=== PATIENT | female | born 1945 | race Caucasian/White ===

== ENCOUNTER → 2016-11-25 | Outpatient (CLI) | payer MEDICARE ==
--- NOTE | 2016-11-25 09:48 | US ---
EXAMINATION TYPE: US abdomen complete DATE OF EXAM: 11/25/2016 COMPARISON: NONE CLINICAL HISTORY: K21.9 Gastric Reflux, R11.0 Nausea. EXAM MEASUREMENTS: Liver Length: 15.1 cm Gallbladder Wall: 0.2 cm CBD: 0.6 cm Spleen: 11.1 cm Right Kidney: 11.5 x 5.1 x 4.9 cm Left Kidney: 10.5 x 5.7 x 5.5 cm Pancreas: visualized portions wnl Liver: Thin-walled cyst near dome measures 1.8 x 1.4 x 2.3 Gallbladder: No stones seen Evidence for sonographic Stewart's sign: No CBD: measures 0.6 cm Spleen: wnl Right Kidney: cyst lower pole measuring 2.0 x 1.9 x 2.3 cm Left Kidney: two separate echogenic foci that are shadowing, largest measures 1.2 cm upper pole Upper IVC: wnl Abd Aorta: wnl The in visualized liver is heterogeneous. Evaluation for focal masses is suboptimal due to the hetero geneity. The intrahepatic portion of the IVC and visualized abdominal aorta are within normal limits towards end of study. Common bile duct is unremarkable. The visualized portions of the pancreas are homogenous. The spleen is unremarkable. Kidneys show no evidence of hydronephrosis bilaterally. Co rtical thinning left kidney is present. No concerning renal lesions are seen bilaterally. IMPRESSION: No significant finding is seen to account for patient's symptoms of gastric esophageal r eflux and nausea. Heterogeneity of liver is likely on basis of fatty infiltration. Suspect nonobstruc ting left-sided renal calculi. Consider plain film and/or CT correlation.
== END | disposition home or self-care (01) ==
LOC: RADUSWWP 08:48
PROVIDERS: ATTEND Family Medicine
DX: K21.9 Gastro-esophageal reflux disease without esophagitis (principal); R11.0 Nausea; R93.422 Abnormal radiologic findings on diagnostic imaging of left kidney
CPT/HCPCS: 76700

== ENCOUNTER 2017-03-04 07:34 | Day surgery (SDC) | payer MEDICARE ==
[2017-03-02 14:56] VITALS: BMI 30.6
[~2017-03-04 07:34] MED LIST: LACTATED RINGERS 1,000 ML IV SCH; LIDOCAINE 1% 20 ML VIAL (10MG/ML) FOR IV START INTRADERMA PRN
[2017-03-04] MEDS ORDERED: LACTATED RINGERS 1,000 ML IV ONE (07:35)
[2017-03-04 07:53] LABS: Glucose,Whole Blood 125 mg/dL (75-99)
[2017-03-04] MEDS ORDERED: LIDOCAINE 1% INJ 10MG/ML (20 ML MDV) ONE (08:18)
[2017-03-04] MEDS ORDERED: PROPOFOL 10 MG/ML 20 ML VIAL IV ONE (08:18)
[2017-03-04] MEDS ORDERED: IV FLUID CONTINUATION 425 ML IV ONE (08:47)
--- NOTE | 2017-03-04 08:48 | P.PCN ---
Date of Procedure: 03/04/17 Preoperative Diagnosis: Postoperative Diagnosis: Procedure(s) Performed: Procedure: Total colonoscopy. Preoperative diagnosis: Screening for neoplasia and change in bowel habits. Postoperative diagnosis: Left-sided diverticulosis with no evidence of acute diverticulitis, strictures, polyps or cancer. Preparation: HalfLytely prep. Sedation: Was provided by anesthesia. Brief clinical history: The patient is a 71-year-old female who is referred for this evaluation because of history of polyps and the issues with alternating bowel habits. Her last colonoscopy was around 6 or 7 years ago. She has no abdominal pain, bleeding or anemia. Procedure: With the patient on her left lateral decubitus position and after informed consent and adequate sedation, the perianal area was inspected and it did not show any fissures or fistulas. There were no masses felt on digital rectal examination. The Olympus CFQ 160L video colonoscope was then inserted in the rectum in the usual fashion and advanced to the cecum. There were several diverticular orifices seen on the left side with no evidence of acute diverticulitis or strictures. No polyps or tumors were seen. The mucosa appeared healthy. I retroflexed the endoscope in the rectum before the endoscope was withdrawn. The patient tolerated the procedure well. Plan: The patient was reassured. Discussed dietary measures. Consideration can be given for repeat exam in 5 years depending on her overall health at that time. She will follow-up with you as planned. Implants: Indications for Procedure: Operative Findings: Description of Procedure:
[2017-03-04 09:02] VITALS: RESP 18
[2017-03-04 09:17] VITALS: BP 153/70; PULSE 52
== END 2017-03-04 09:30 | disposition home or self-care (01) ==
LOC: ORWHC2ENDO 07:34
DX: K57.30 Diverticulosis of large intestine without perforation or abscess without bleeding (principal); Z86.010 Personal history of colon polyps; K21.9 Gastro-esophageal reflux disease without esophagitis; I10 Essential (primary) hypertension; E78.5 Hyperlipidemia, unspecified; J45.909 Unspecified asthma, uncomplicated; E11.9 Type 2 diabetes mellitus without complications; Z79.84 Long term (current) use of oral hypoglycemic drugs; Z86.73 Personal history of transient ischemic attack (TIA), and cerebral infarction without residual deficits; Z79.82 Long term (current) use of aspirin; Z79.899 Other long term (current) drug therapy
CPT/HCPCS: 45378; J2001; J2704

== ENCOUNTER → 2018-06-13 | Outpatient (CLI) | payer MEDICARE ==
--- NOTE | 2018-06-13 15:35 | BD ---
EXAMINATION TYPE: Axial Bone Density DATE OF EXAM: 06/13/2018 COMPARISON: 12/25/2014 CLINICAL HISTORY: 72-year-old female postmenopausal screening without HRT Height: 62 IN Weight: 170 LBS RISK FACTORS HISTORY OF: Active: YES Diet low in dairy products/other sources of calcium: YES Postmenopausal woman: AGE 49 Take estrogen and/or progesterone medications: NOT NOW How long: TOOK ESTROGEN FOR 4 YEARS MEDICATIONS: Additional Medications: VIT D, OMEPRAZOLE, LOSARTAN, METFORMIN, CETIRIZINE, MONTELUKAST, ASPIRIN,PRAV ASTATIN, FERROUS SULFATE, VIT B12, MULTI VIT EXAM MEASUREMENTS: Bone mineral densitometry was performed using the [employer] System. Bone mineral density as measured about the Lumbar spine is: ----- L1-L4(G/cm2): 1.092 T Score Values are as follows: ----- L2: -1.4 ----- L3: -0.2 ----- L4: -0.8 ----- L1-L4: -0.7 Bone mineral density has: Decreased -2.0% since study of: 12/25/2014 Bone mineral density about the R hip (g/cm2): 0.877 Bone mineral density about the L hip (g/cm2): 0.958 T Score values are as follows: -----R Neck: -1.2 -----L Neck: -0.6 -----R Total: -1.1 -----L Total: -0.4 Bone mineral density has: Increased 4.6% since study of: 12/25/2014 IMPRESSION: Osteopenia (T Score between -2.5 and -1). There is slightly increased risk of fracture and the patient may be considered for treatment. Re-Screen 2-5 years. NOTE: T-SCORE=SD OF THE YOUNG ADULT MEAN.
--- NOTE | 2018-06-14 11:16 | MM ---
Reason for exam: screening (asymptomatic). Last mammogram was performed 1 year ago. History: Patient is postmenopausal. Family history of breast cancer in paternal aunt at age 70. Benign stereotactic core biopsy of the left breast, July 26, 1998. Took estrogen for 4 years. Physical Findings: A clinical breast exam by your physician is recommended on an annual basis and results should be correlated with mammographic findings. MG 3D Screening Mammo W/Cad Bilateral CC and MLO view(s) were taken. Prior study comparison: June 10, 2017, bilateral MG 3d screening mammo w/cad. March 19, 2016, bilateral MG 3d screening mammo w/cad. The breast tissue is heterogeneously dense. This may lower the sensitivity of mammography. No suspicious abnormality. Left biopsy marker noted. No significant changes when compared with prior studies. ASSESSMENT: Benign, BI-RAD 2 RECOMMENDATION: Routine screening mammogram of both breasts in 1 year.
== END | disposition home or self-care (01) ==
LOC: RADMAMWWP 08:44
PROVIDERS: ATTEND Obstetrics & Gynecology
DX: Z12.31 Encounter for screening mammogram for malignant neoplasm of breast (principal); Z13.820 Encounter for screening for osteoporosis; M85.80 Other specified disorders of bone density and structure, unspecified site
CPT/HCPCS: 77063; 77067; 77080

== ENCOUNTER → 2019-06-17 | Outpatient (CLI) | payer MEDICARE ==
--- NOTE | 2019-06-23 09:53 | MM ---
Reason for exam: screening (asymptomatic). Last mammogram was performed 1 year ago. History: Patient is postmenopausal. Family history of breast cancer in paternal aunt at age 70. Benign stereotactic core biopsy of the left breast, July 26, 1998. Took estrogen for 4 years. Physical Findings: A clinical breast exam by your physician is recommended on an annual basis and results should be correlated with mammographic findings. MG 3D Screening Mammo W/Cad Bilateral CC and MLO view(s) were taken. XCCL view(s) were taken of the left breast. Prior study comparison: June 13, 2018, bilateral MG 3d screening mammo w/cad. June 10, 2017, bilateral MG 3d screening mammo w/cad. There are scattered fibroglandular densities. Previous mammotome biopsy in the left breast. No significant changes when compared with prior studies. ASSESSMENT: Negative, BI-RAD 1 RECOMMENDATION: Routine screening mammogram of both breasts in 1 year.
== END | disposition home or self-care (01) ==
LOC: RADMAMWWP 08:15
PROVIDERS: ATTEND Obstetrics & Gynecology
DX: Z12.31 Encounter for screening mammogram for malignant neoplasm of breast (principal)
CPT/HCPCS: 77063; 77067

== ENCOUNTER 2020-05-28 10:13 | Emergency (ER) | payer MEDICARE ==
[2020-05-28 10:41] VITALS: RESP 18
--- NOTE | 2020-05-28 10:47 | ED ---
General Adult HPI - General Chief complaint: Dizziness Stated complaint: Near Syncope Time Seen by Provider: 05/28/20 10:46 Source: patient Mode of arrival: wheelchair Limitations: no limitations - History of Present Illness Initial comments: Pt is a 74 yo female, with history of diabetes, hypertension, presenting to the emergency Department with complaints of near syncope today after walking to the bathroom this morning. Pt had been awake for about an hour and had toast for breakfast. She states that she felt like she was going to pass out when she was walking to the restroom. She denies fever, chest pain, dyspnea. He denies pain anywhere, no abdominal pain, no nausea or vomiting, no urinary complaints. Patient states she normally has a slight cough but feels like it is a little bit more increased than usual. She has been feeling generally fatigued over the last 3 days, lower appetite, some intermittent lightheadedness. She denies any sick contacts that she is aware of. She denies any falls or trauma. She has no further complaints at this time. Upon arrival to the ER, she is afebrile, slightly hypertensive at 188/76, rest of vitals are normal. - Related Data Home Medications Medication Instructions Recorded Confirmed Aspirin 325 mg PO HS 03/02/17 05/28/20 Cetirizine HCl 10 mg PO DAILY 03/02/17 05/28/20 Cholecalciferol [Vitamin D3] 5,000 unit PO DAILY 03/02/17 05/28/20 Fish Oil/Dha/Epa [Fish Oil 1,200 1 cap PO DAILY 03/02/17 05/28/20 mg Fish Oil] Montelukast [Singulair] 10 mg PO HS 03/02/17 05/28/20 Multivitamins, Thera [Multivitamin 1 tab PO DAILY 03/02/17 05/28/20 (formulary)] Omeprazole [PriLOSEC] 20 mg PO AC-BID 03/02/17 05/28/20 Pravastatin Sodium [Pravachol] 40 mg PO HS 03/02/17 05/28/20 metFORMIN HCL [Glucophage] 1,000 mg PO QAM 03/02/17 05/28/20 metFORMIN HCL [Glucophage] 500 mg PO HS 03/02/17 05/28/20 Cyanocobalamin [Vitamin B-12] 500 mcg PO DAILY 05/28/20 05/28/20 Ferrous Sulfate [Feosol] 325 mg PO DAILY 05/28/20 05/28/20 Losartan Potassium 100 mg PO DAILY 05/28/20 05/28/20 hydroCHLOROthiazide [Hydrodiuril] 25 mg PO DAILY 05/28/20 05/28/20 Allergies Allergy/AdvReac Type Severity Reaction Status Date / Time No Known Allergies Allergy Verified 05/28/20 12:14 Review of Systems ROS Statement: Those systems with pertinent positive or pertinent negative responses have been documented in the HPI. ROS Other: All systems not noted in ROS Statement are negative. Past Medical History Past Medical History: Diabetes Mellitus, GERD/Reflux, Hyperlipidemia, Hypertension Additional Past Medical History / Comment(s): TIA left eye, varicose veins, History of Any Multi-Drug Resistant Organisms: None Reported Past Surgical History: Appendectomy, Hysterectomy, Orthopedic Surgery Additional Past Surgical History / Comment(s): arthroscopy left knee, rt shoulder rotator cuff, rt great toe surgery, neelima cataracts Past Anesthesia/Blood Transfusion Reactions: No Reported Reaction Past Psychological History: No Psychological Hx Reported Smoking Status: Never smoker Past Alcohol Use History: None Reported Past Drug Use History: None Reported - Past Family History Mother Family Medical History: Cancer Brother(s) Family Medical History: Pulmonary Embolus General Exam - General Exam Comments Initial Comments: GENERAL: Patient is well-developed and well-nourished. Patient is nontoxic and in no acute distress. HEAD: Atraumatic, normocephalic. EYES: Pupils equal round and reactive to light, extraocular movements intact, sclera anicteric, conjunctiva are normal. Eyelids were unremarkable. ENT: TMs normal, nares patent, oropharynx clear without exudates. Moist mucous membranes. NECK: Normal range of motion, supple without lymphadenopathy or JVD. LUNGS: Unlabored respirations. Breath sounds clear to auscultation bilaterally and equal. No wheezes rales or rhonchi. HEART: Regular rate and rhythm without murmurs, rubs or gallops. ABDOMEN: Soft, nontender, normoactive bowel sounds. No guarding, no rebound. No masses appreciated. : Deferred MUSCULOSKELETAL: Normal extremities with adequate strength and normal range of motion, no pitting or edema. No clubbing or cyanosis. NEUROLOGICAL: Patient is alert and oriented x 3. Motor and sensory are also intact. Cranial nerves II through XII grossly intact. Symmetrical smile. Normal speech, normal gait. PSYCH: Normal mood, normal affect. SKIN: Warm, Dry, normal turgor, no rashes or lesions noted. Limitations: no limitations Course Vital Signs 05/28/20 05/28/20 10:39 12:52 Temperature 98.9 F 97.7 F Pulse Rate 71 68 Respiratory 18 18 Rate Blood Pressure 188/76 148/69 O2 Sat by Pulse 97 98 Oximetry EKG Findings - EKG Comments: EKG Findings:: Normal sinus rhythm, normal ECG, no signs of acute ischemia. Ve ntricular rate 65, NH interval 172, QTC 422. Medical Decision Making - Medical Decision Making Patient is a 74-year-old female here for feeling near-syncope and this morning when she is walking to the restroom. She's had fatigue and lower appetite for the last 3 days. No fevers. He is afebrile upon arrival, slightly hypertensive. Her EKG shows no acute process. Labs show a normal white count, normal hemoglobin, lactic acid is 2.4, most likely from dehydration. There is no signs of an acute infection. Troponin is negative, urine shows no evidence of infection. Covid tested comeback positive. Chest x-ray shows some mild left basilar infiltrate, no other acute process. Patient was given a liter of fluids and does report improvement in her symptoms. I discussed these findings with the patient. She needs to continue to self quarantine at home, she does live by herself. Increase fluid intake and to follow up with her PCP. Patient is in agreement with this plan of care. She is stable for discharge. Return parameters were discussed with the patient she verbalized understanding. Case discussed Dr. Serrano. - Lab Data Result diagrams: 05/28/20 11:15 05/28/20 11:15 Lab Results 05/28/20 05/28/20 05/28/20 Range/Units 11:15 11:15 11:15 WBC 8.1 (3.8-10.6) k/uL RBC 3.95 (3.80-5.40) m/uL Hgb 12.0 (11.4-16.0) gm/dL Hct 35.6 (34.0-46.0) % MCV 90.2 (80.0-100.0) fL MCH 30.5 (25.0-35.0) pg MCHC 33.8 (31.0-37.0) g/dL RDW 12.7 (11.5-15.5) % Plt Count 307 (150-450) k/uL MPV 7.2 Neutrophils % 81 % Lymphocytes % 13 % Monocytes % 4 % Eosinophils % 1 % Basophils % 0 % Neutrophils # 6.6 (1.3-7.7) k/uL Lymphocytes # 1.1 (1.0-4.8) k/uL Monocytes # 0.3 (0-1.0) k/uL Eosinophils # 0.1 (0-0.7) k/uL Basophils # 0.0 (0-0.2) k/uL PT 9.3 (9.0-12.0) sec INR 0.9 (<1.2) APTT 21.4 L (22.0-30.0) sec Sodium 137 (137-145) mmol/L Potassium 4.1 (3.5-5.1) mmol/L Chloride 101 (98-107) mmol/L Carbon Dioxide 27 (22-30) mmol/L Anion Gap 9 mmol/L BUN 20 H (7-17) mg/dL Creatinine 0.79 (0.52-1.04) mg/dL Est GFR (CKD-EPI)AfAm 85 (>60 ml/min/1.73 sqM) Est GFR (CKD-EPI)NonAf 74 (>60 ml/min/1.73 sqM) Glucose 163 H (74-99) mg/dL Plasma Lactic Acid Sam (0.7-2.0) mmol/L Calcium 9.4 (8.4-10.2) mg/dL Total Bilirubin 1.0 (0.2-1.3) mg/dL AST 35 (14-36) U/L ALT 27 (4-34) U/L Alkaline Phosphatase 87 (38-126) U/L Troponin I (0.000-0.034) ng/mL Total Protein 6.9 (6.3-8.2) g/dL Albumin 4.2 (3.5-5.0) g/dL Urine Color Urine Appearance (Clear) Urine pH (5.0-8.0) Ur Specific [place] (1.001-1.035) Urine Protein (Negative) Urine Glucose (UA) (Negative) Urine Ketones (Negative) Urine Blood (Negative) Urine Nitrite (Negative) Urine Bilirubin (Negative) Urine Urobilinogen (<2.0) mg/dL Ur Leukocyte Esterase (Negative) Urine RBC (0-5) /hpf Urine WBC (0-5) /hpf Ur Squamous Epith Cells (0-4) /hpf Urine Bacteria (None) /hpf Hyaline Casts (0-2) /lpf Urine Mucus (None) /hpf Coronavirus (PCR) (Not Detectd) 05/28/20 05/28/20 05/28/20 Range/Units 11:15 11:15 11:23 WBC (3.8-10.6) k/uL RBC (3.80-5.40) m/uL Hgb (11.4-16.0) gm/dL Hct (34.0-46.0) % MCV (80.0-100.0) fL MCH (25.0-35.0) pg MCHC (31.0-37.0) g/dL RDW (11.5-15.5) % Plt Count (150-450) k/uL MPV Neutrophils % % Lymphocytes % % Monocytes % % Eosinophils % % Basophils % % Neutrophils # (1.3-7.7) k/uL Lymphocytes # (1.0-4.8) k/uL Monocytes # (0-1.0) k/uL Eosinophils # (0-0.7) k/uL Basophils # (0-0.2) k/uL PT (9.0-12.0) sec INR (<1.2) APTT (22.0-30.0) sec Sodium (137-145) mmol/L Potassium (3.5-5.1) mmol/L Chloride (98-107) mmol/L Carbon Dioxide (22-30) mmol/L Anion Gap mmol/L BUN (7-17) mg/dL Creatinine (0.52-1.04) mg/dL Est GFR (CKD-EPI)AfAm (>60 ml/min/1.73 sqM) Est GFR (CKD-EPI)NonAf (>60 ml/min/1.73 sqM) Glucose (74-99) mg/dL Plasma Lactic Acid Sam 2.4 H* (0.7-2.0) mmol/L Calcium (8.4-10.2) mg/dL Total Bilirubin (0.2-1.3) mg/dL AST (14-36) U/L ALT (4-34) U/L Alkaline Phosphatase (38-126) U/L Troponin I <0.012 (0.000-0.034) ng/mL Total Protein (6.3-8.2) g/dL Albumin (3.5-5.0) g/dL Urine Color Urine Appearance (Clear) Urine pH (5.0-8.0) Ur Specific [place] (1.001-1.035) Urine Protein (Negative) Urine Glucose (UA) (Negative) Urine Ketones (Negative) Urine Blood (Negative) Urine Nitrite (Negative) Urine Bilirubin (Negative) Urine Urobilinogen (<2.0) mg/dL Ur Leukocyte Esterase (Negative) Urine RBC (0-5) /hpf Urine WBC (0-5) /hpf Ur Squamous Epith Cells (0-4) /hpf Urine Bacteria (None) /hpf Hyaline Casts (0-2) /lpf Urine Mucus (None) /hpf Coronavirus (PCR) Detected A (Not Detectd) 05/28/20 Range/Units 12:50 WBC (3.8-10.6) k/uL RBC (3.80-5.40) m/uL Hgb (11.4-16.0) gm/dL Hct (34.0-46.0) % MCV (80.0-100.0) fL MCH (25.0-35.0) pg MCHC (31.0-37.0) g/dL RDW (11.5-15.5) % Plt Count (150-450) k/uL MPV Neutrophils % % Lymphocytes % % Monocytes % % Eosinophils % % Basophils % % Neutrophils # (1.3-7.7) k/uL Lymphocytes # (1.0-4.8) k/uL Monocytes # (0-1.0) k/uL Eosinophils # (0-0.7) k/uL Basophils # (0-0.2) k/uL PT (9.0-12.0) sec INR (<1.2) APTT (22.0-30.0) sec Sodium (137-145) mmol/L Potassium (3.5-5.1) mmol/L Chloride (98-107) mmol/L Carbon Dioxide (22-30) mmol/L Anion Gap mmol/L BUN (7-17) mg/dL Creatinine (0.52-1.04) mg/dL Est GFR (CKD-EPI)AfAm (>60 ml/min/1.73 sqM) Est GFR (CKD-EPI)NonAf (>60 ml/min/1.73 sqM) Glucose (74-99) mg/dL Plasma Lactic Acid Sam (0.7-2.0) mmol/L Calcium (8.4-10.2) mg/dL Total Bilirubin (0.2-1.3) mg/dL AST (14-36) U/L ALT (4-34) U/L Alkaline Phosphatase (38-126) U/L Troponin I (0.000-0.034) ng/mL Total Protein (6.3-8.2) g/dL Albumin (3.5-5.0) g/dL Urine Color Yellow Urine Appearance Cloudy H (Clear) Urine pH 6.5 (5.0-8.0) Ur Specific [place] 1.015 (1.001-1.035) Urine Protein Trace H (Negative) Urine Glucose (UA) Negative (Negative) Urine Ketones Negative (Negative) Urine Blood Negative (Negative) Urine Nitrite Negative (Negative) Urine Bilirubin Negative (Negative) Urine Urobilinogen <2.0 (<2.0) mg/dL Ur Leukocyte Esterase Negative (Negative) Urine RBC 2 (0-5) /hpf Urine WBC 1 (0-5) /hpf Ur Squamous Epith Cells 8 H (0-4) /hpf Urine Bacteria Rare H (None) /hpf Hyaline Casts 1 (0-2) /lpf Urine Mucus Rare H (None) /hpf Coronavirus (PCR) (Not Detectd) Disposition Clinical Impression: COVID-19 virus detected, Dehydration, Lightheadedness Disposition: HOME SELF-CARE Condition: Stable Instructions (If sedation given, give patient instructions): Viral Syndrome (ED) Additional Instructions: Please return to the Emergency Department if symptoms worsen or any other concerns. Positive Covid test today. Increase fluid intake. Follow-up with your physician in 1-3 days. Is patient prescribed a controlled substance at d/c from ED?: No Referrals: Lita Roberts MD [Primary Care Provider] - 1-2 days
[2020-05-28 11:25] LABS: Basophils % (A) 0 %; Eosinophils # (A) 0.1 k/uL (0-0.7); Eosinophils % (A) 1 %; HCT 35.6 % (34.0-46.0); Lymphocytes # (A) 1.1 k/uL (1.0-4.8); Lymphocytes % (A) 13 %; MCH 30.5 pg (25.0-35.0); MCHC 33.8 g/dL (31.0-37.0); MCV 90.2 fL (80.0-100.0); Mean Platelet Volume 7.2; Monocytes # (A) 0.3 k/uL (0-1.0); Monocytes % (A) 4 %; Neutrophils # (A) 6.6 k/uL (1.3-7.7); Neutrophils % (A) 81 %; Platelet Count 307 k/uL (150-450); RBC 3.95 m/uL (3.80-5.40); RDW 12.7 % (11.5-15.5); WBC 8.1 k/uL (3.8-10.6)
--- NOTE | 2020-05-28 11:37 | XR ---
EXAMINATION TYPE: XR chest 2V DATE OF EXAM: 05/28/2020 COMPARISON: NONE TECHNIQUE: PA and lateral views submitted. HISTORY: Shortness of breath and cough FINDINGS: Heart prominent in size with subsegmental changes at the left lung base. Right lung clear. No pneumot horax. Arthropathy of the shoulders with diffuse osteopenia. Partial eventration right hemidiaphragm. Hypertrophic and degenerative change of the spine. IMPRESSION: 1. Left basilar infiltrate.
[2020-05-28 11:46] LABS: INR 0.9 (<1.2); Prothrombin Time 9.3 sec (9.0-12.0)
[2020-05-28 11:48] LABS: Albumin 4.2 g/dL (3.5-5.0); Calcium 9.4 mg/dL (8.4-10.2); Potassium 4.1 mmol/L (3.5-5.1); Total Protein 6.9 g/dL (6.3-8.2)
[2020-05-28 11:54] LABS: Partial Thromboplastin Time 21.4 sec (22.0-30.0)
[2020-05-28] MEDS ORDERED: SODIUM CHLORIDE 0.9% 1,000 ML IV STA (12:01)
[2020-05-28 13:07] LABS: Appearance,Urine Cloudy (Clear); Bacteria,Urine Rare /hpf; Bilirubin,Urine Negative (Negative); Blood,Urine Negative (Negative); Color,Urine Yellow; Glucose,Urine (UA) Negative (Negative); Hyaline Casts,Urine 1 /lpf (0-2); Ketones,Urine Negative (Negative); Leukocyte Esterase,Urine Negative (Negative); Mucus,Urine Rare /hpf; Nitrite,Urine Negative (Negative); PH, Urine 6.5 (5.0-8.0); Protein,Urine Trace (Negative); RBC,Urine 2 /hpf (0-5); Specific Gravity,Urine 1.015 (1.001-1.035); Squamous Epithelial Cell,Urine 8 /hpf (0-4); Urobilinogen,Urine <2.0 mg/dL (<2.0); WBC,Urine 1 /hpf (0-5)
[2020-05-28 14:03] VITALS: BP 130/82; PULSE 66; TEMP 98.2
== END 2020-05-28 14:03 | disposition home or self-care (01) ==
LOC: EC 10:13
DX: U07.1 COVID-19 (principal); E86.0 Dehydration; R42 Dizziness and giddiness; R91.8 Other nonspecific abnormal finding of lung field; I10 Essential (primary) hypertension; E11.9 Type 2 diabetes mellitus without complications; K21.9 Gastro-esophageal reflux disease without esophagitis; E78.5 Hyperlipidemia, unspecified; Z79.82 Long term (current) use of aspirin; Z79.899 Other long term (current) drug therapy; Z79.84 Long term (current) use of oral hypoglycemic drugs
CPT/HCPCS: 36415; 71046; 80053; 81001; 83605; 84484; 85025; 85610; 85730; 87635; 93005; 96360; 99284

== ENCOUNTER → 2020-08-07 | Outpatient (CLI) | payer MEDICARE ==
--- NOTE | 2020-08-09 11:11 | MM ---
Reason for exam: screening (asymptomatic). Last mammogram was performed 1 year and 2 months ago. History: Patient is postmenopausal. Family history of breast cancer in paternal aunt at age 70. Benign stereotactic core biopsy of the left breast, July 26, 1998. Took estrogen for 4 years. Physical Findings: A clinical breast exam by your physician is recommended on an annual basis and results should be correlated with mammographic findings. MG 3D Screening Mammo W/Cad Bilateral CC and MLO view(s) were taken. Prior study comparison: June 17, 2019, bilateral MG 3d screening mammo w/cad. June 13, 2018, bilateral MG 3d screening mammo w/cad. The breast tissue is heterogeneously dense. This may lower the sensitivity of mammography. Stable benign calcifications. There is no discrete abnormality. No significant changes when compared with prior studies. ASSESSMENT: Benign, BI-RAD 2 RECOMMENDATION: Routine screening mammogram of both breasts in 1 year.
== END | disposition home or self-care (01) ==
LOC: RADMAMWWP 10:49
PROVIDERS: ATTEND Obstetrics & Gynecology
DX: Z12.31 Encounter for screening mammogram for malignant neoplasm of breast (principal)
CPT/HCPCS: 77063; 77067

== ENCOUNTER → 2020-08-19 | Outpatient (CLI) | payer MEDICARE ==
--- NOTE | 2020-08-19 16:04 | BD ---
EXAMINATION TYPE: Axial Bone Density DATE OF EXAM: 08/19/2020 COMPARISON: 12/25/2014 CLINICAL HISTORY: Height: 62 IN Weight: 164 LBS RISK FACTORS HISTORY OF: Active: YES Diet low in dairy products/other sources of calcium: YES Postmenopausal woman: AGE 53 TOTAL HYST MEDICATIONS: Additional Medications:VIT D, LOSARTAN, HYDROCHLORAT, METFORMIN, OMEPRAZOLE, PRAVASTATIN, MAGNESIUM, CENTRIZINE, MONTELUKAST, ASPIRIN, VIT B12, EXAM MEASUREMENTS: Bone mineral densitometry was performed using the [employer] System. Bone mineral density as measured about the Lumbar spine is: ----- L1-L4(G/cm2): 1.087 T Score Values are as follows: ----- L2: -1.0 ----- L3: -0.3 ----- L4: -1.0 ----- L1-L4: -0.8 Bone mineral density has: Decreased -1.9% since study of: 12/25/2014 Bone mineral density about the R hip (g/cm2): 0.922 Bone mineral density about the L hip (g/cm2): 0.965 T Score values are as follows: -----R Neck: -0.8 -----L Neck: -0.5 -----R Total: -1.3 -----L Total: -0.7 Bone mineral density has: Increased 0.9% since study of: 12/25/2014 IMPRESSION: Normal (Values between +1 and -1 indicate normal bone mass). Consider repeating this study in 5 year s or sooner if there is some new clinical indication. NOTE: T-SCORE=SD OF THE YOUNG ADULT MEAN.
== END | disposition home or self-care (01) ==
LOC: RADBDWWP 10:24
PROVIDERS: ATTEND Obstetrics & Gynecology
DX: M85.88 Other specified disorders of bone density and structure, other site (principal)
CPT/HCPCS: 77080

== ENCOUNTER 2021-06-15 18:54 | Emergency (ER) | payer MEDICARE ==
[2021-06-15] MEDS ORDERED: DIPH,PERTUS(ACELL)TETVAC-LF 0.5 ML VIAL IM ONE (19:31)
[2021-06-15] MEDS ORDERED: LIDOCAINE 1% INJ 10MG/ML (20 ML MDV) SQ ONE (19:31)
[2021-06-15] MEDS ORDERED: ceFAZolin 1,000 MG VIAL (IM USE) IM STA (19:41)
--- NOTE | 2021-06-15 19:53 | XR ---
EXAMINATION TYPE: XR hand complete RT DATE OF EXAM: 06/15/2021 COMPARISON: NONE HISTORY: Pain and swelling TECHNIQUE: 3 view FINDINGS: There is posterior dislocation of the PIP joint of the ring finger and little finger. I see no fracture line. 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 Metacarpals are intact. Carpal bones ar e intact. IMPRESSION: Posterior dislocation of the ring finger and little finger as above.
--- NOTE | 2021-06-15 20:07 | ED ---
Wound/Laceration HPI - General Chief Complaint: Wound/Laceration Stated Complaint: Fall/hand injury/lac Time Seen by Provider: 06/15/21 19:22 Source: patient Mode of arrival: ambulatory Limitations: no limitations - History of Present Illness Initial Comments: 75 year-old female patient presents for evaluation of right hand injury. States she was walking on a sidewalk when she tripped and fell causing the injury. She reports lacerations to the right fourth and fifth digit. Reports pain and swelling to the area. Denies hitting her head or losing consciousness. Does take aspirin, no other blood thinners. Denies neck or back pain. She is unsure when her last tetanus vaccine was given. - Related Data Home Medications Medication Instructions Recorded Confirmed Aspirin 325 mg PO HS 03/02/17 06/15/21 Cetirizine HCl 10 mg PO DAILY 03/02/17 06/15/21 Cholecalciferol [Vitamin D3] 5,000 unit PO DAILY 03/02/17 06/15/21 Fish Oil/Dha/Epa [Fish Oil 1,200 1 cap PO DAILY 03/02/17 06/15/21 mg Fish Oil] Montelukast [Singulair] 10 mg PO HS 03/02/17 06/15/21 Multivitamins, Thera [Multivitamin 1 tab PO DAILY 03/02/17 06/15/21 (formulary)] Omeprazole [PriLOSEC] 20 mg PO AC-BID 03/02/17 06/15/21 Pravastatin Sodium [Pravachol] 40 mg PO HS 03/02/17 06/15/21 metFORMIN HCL [Glucophage] 1,000 mg PO DAILY 03/02/17 06/15/21 metFORMIN HCL [Glucophage] 500 mg PO HS 03/02/17 06/15/21 Cyanocobalamin [Vitamin B-12] 500 mcg PO DAILY 05/28/20 06/15/21 Ferrous Sulfate [Feosol] 325 mg PO DAILY 05/28/20 06/15/21 Losartan Potassium 100 mg PO DAILY 05/28/20 06/15/21 hydroCHLOROthiazide [Hydrodiuril] 25 mg PO DAILY 05/28/20 06/15/21 Diclofenac Sodium Gel [Voltaren 1 applic TOPICAL BID PRN 06/15/21 06/15/21 Gel] Previous Rx's Medication Instructions Recorded Cephalexin [Keflex] 500 mg PO Q6H #28 cap 06/15/21 Allergies Allergy/AdvReac Type Severity Reaction Status Date / Time No Known Allergies Allergy Verified 06/15/21 19:59 Review of Systems ROS Statement: Those systems with pertinent positive or pertinent negative responses have been documented in the HPI. ROS Other: All systems not noted in ROS Statement are negative. Past Medical History Past Medical History: Diabetes Mellitus, GERD/Reflux, Hyperlipidemia, Hypertension Additional Past Medical History / Comment(s): TIA left eye, varicose veins, History of Any Multi-Drug Resistant Organisms: None Reported Past Surgical History: Appendectomy, Hysterectomy, Orthopedic Surgery Additional Past Surgical History / Comment(s): arthroscopy left knee, rt shoulder rotator cuff, rt great toe surgery, neelima cataracts Past Anesthesia/Blood Transfusion Reactions: No Reported Reaction Past Psychological History: No Psychological Hx Reported Smoking Status: Never smoker Past Alcohol Use History: None Reported Past Drug Use History: None Reported - Past Family History Mother Family Medical History: Cancer Brother(s) Family Medical History: Pulmonary Embolus General Exam Limitations: no limitations Course Vital Signs 06/15/21 06/15/21 19:10 22:00 Temperature 98.0 F 97.6 F Pulse Rate 74 73 Respiratory 16 18 Rate Blood Pressure 180/81 148/72 O2 Sat by Pulse 99 95 Oximetry Procedures - Laceration Laceration #1 Consent Obtained: verbal consent Indication: laceration Site: hand (Right little finger) Size (cm): 3 Description: linear Depth: involves tendon, arterial injury Anesthetic Used: lidocaine 1% Anesthesia Technique: nerve block Amount (mls): 4 Pre-repair: wound explored, irrigated extensively Type of Sutures: nylon (4), vicryl (2) Size of Sutures: 5-0 Number of Sutures: 6 Technique: simple, interrupted Patient Tolerated Procedure: well, no complications Laceration #2 Consent Obtained: verbal consent Indication: laceration Site: hand (right ring finger) Size (cm): 3 Description: linear Depth: involves tendon, [id number] Anesthetic Used: lidocaine 1% Anesthesia Technique: nerve block Amount (mls): 4 Pre-repair: irrigated extensively Type of Sutures: nylon (5), vicryl (3) Size of Sutures: 5-0 Number of Sutures: 8 Technique: simple, interrupted Patient Tolerated Procedure: well, no complications Medical Decision Making - Medical Decision Making 75-year-old female patient presents for evaluation of right hand injury. Physical examination did reveal laceration to the right ring finger and right little finger. There was tendon exposure. X-ray showed posterior dislocation of the middle phalanx of the right ring finger and the right little finger. These were reduced after digital block. Wounds were irrigated, cleansed, and closed as documented. There does not appear to be in the tendon injury. Patient has full range of motion. She is given IM dose of Kefzol. Updated her tetanus vaccine. Patient tolerated these procedures well. She'll be discharged to follow-up with orthopedic hand specialist Dr. Fink. She is instructed to call in the morning for an appointment. Return parameters were discussed in detail. She verbalizes understanding and agrees with this plan. My attending is Dr. Cantor. - Radiology Data Radiology results: report reviewed, image reviewed 3 views of the right hand are obtained. Report was reviewed in its entirety. Impression by Dr. Hyatt shows posterior dislocation of the ring finger and little finger. 2 views of the right hand are obtained. Postreduction purposes. Impression by Dr. Hyatt shows anatomic reduction. No fracture seen. Disposition Clinical Impression: Finger laceration, Open finger dislocation, Open fracture of phalanx of left little finger Narrative: Laceration of finger with tendon exposure Right fourth and fifth fingers Disposition: HOME SELF-CARE Condition: Good Instructions (If sedation given, give patient instructions): Finger Laceration (ED), Finger Dislocation (ED) Additional Instructions: Keep wound clean and dry. First dressing remains in place for 24 hours unless it becomes saturated. Then cleanse twice daily with warm water and antibacterial soap. Follow-up with the skin care specialist for further evaluation as soon as possible. Complete antibiotic prescription and full. Follow-up with the primary care physician for recheck in 1-2 days. Prescriptions: Cephalexin [Keflex] 500 mg PO Q6H #28 cap Is patient prescribed a controlled substance at d/c from ED?: No Referrals: Lita Roberts MD [Primary Care Provider] - 1-2 days Gosia Fink DO [Doctor of Osteopathic Medicine] - 1-2 days Time of Disposition: 21:56
[2021-06-15] MEDS ORDERED: BACITRACIN OINT 1 EACH PACKET TOPICAL ONE (20:19)
[2021-06-15] MEDS ORDERED: ACET/COD 300 MG/30 MG STARTER PACK 6 TAB BTL PO STA (21:34)
--- NOTE | 2021-06-15 22:07 | XR ---
EXAMINATION TYPE: XR hand limited RT DATE OF EXAM: 06/15/2021 COMPARISON: NONE HISTORY: Pain and swelling TECHNIQUE: 2 views FINDINGS: There is anatomic reduction of the dislocated PIP joint of the ring finger and little finge r. I see no fracture line. 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 IMPRESSION: Anatomic reduction. No fracture seen.
[2021-06-15 22:18] VITALS: BP 148/72; PULSE 73; RESP 18; TEMP 97.6
== END 2021-06-15 22:24 | disposition home or self-care (01) ==
LOC: EC 18:54
DX: S63.284A Dislocation of proximal interphalangeal joint of right ring finger, initial encounter (principal); S63.286A Dislocation of proximal interphalangeal joint of right little finger, initial encounter; E11.9 Type 2 diabetes mellitus without complications; I10 Essential (primary) hypertension; E78.5 Hyperlipidemia, unspecified; K21.9 Gastro-esophageal reflux disease without esophagitis; Z23 Encounter for immunization; Z79.84 Long term (current) use of oral hypoglycemic drugs; Z86.73 Personal history of transient ischemic attack (TIA), and cerebral infarction without residual deficits; Z79.899 Other long term (current) drug therapy; Z79.51 Long term (current) use of inhaled steroids; W01.0XXA Fall on same level from slipping, tripping and stumbling without subsequent striking against object, initial encounter; Y93.01 Activity, walking, marching and hiking
CPT/HCPCS: 73120; 73130; 90715; 26770 ×2; 90471; 99284; 96372; J0690; J2001

== ENCOUNTER → 2021-11-25 | Outpatient (CLI) | payer MEDICARE ==
--- NOTE | 2021-11-25 12:57 | US ---
EXAMINATION TYPE: US abdomen complete DATE OF EXAM: 11/25/2021 COMPARISON: 11/25/2016 CLINICAL HISTORY: 76-year-old female R10.811 RIGHT UPPER QUADRANT ABDOMINAL TENDERNESS.. RUQ pain wit h occasional nausea and vomiting TECHNIQUE: Multiple sonographic images of the abdomen are obtained. FINDINGS: EXAM MEASUREMENTS: Liver Length: 15.2 cm Gallbladder Wall: .2 cm CBD: .6 cm Spleen: 10.5 cm Right Kidney: 11.0 x 5.0 x 4.7 cm Left Kidney: 11.3 x 5.6 x 4.6 cm Pancreas: The tail is partially obscured by bowel gas shadowing. The majority is visualized and shows no gross abnormality. Liver: Round 2.3 x1.8 x 2.4 cm hypoechoic lesion in the right upper lobe with posterior through abbasi smission. Previously, this measured 2.3 x 1.8 cm. Gallbladder: No abnormal distention, wall thickening, pericholecystic fluid, or shadowing calculi. Evidence for . Sonographic Stewart's sign: No CBD:, Borderline in caliber, unchanged from 2017. Spleen: wnl Right Kidney: No hydronephrosis. Lower pole cortical cyst measuring 2.4 cm versus 2.3 cm in 2017. Left Kidney: No hydronephrosis, multiple calcifications noted, largest seen in inferior pole measuri ng approximately 1.1 x .5 x .8 cm Upper IVC: wnl Abd Aorta: wnl IMPRESSION: 1. At least moderate hepatic steatosis. Correlate with LFTs, lipid profile, and patient risk factors. 2. Round hypoechoic lesion measuring 2.4 cm in the right upper lobe shows posterior through-transmiss ion. This measured 2.3 cm back in 2017. Findings suggest a cyst containing debris or a benign hepatic hemangioma. 3. No gallstones. Stable borderline caliber to the bile duct at 6 mm. Acceptable given patient's age. 4. Nonobstructive left renal calculi, largest measuring 1.1 cm at the lower pole.
== END | disposition home or self-care (01) ==
LOC: RADUSWWP 09:32
PROVIDERS: ATTEND Family Medicine
DX: R10.811 Right upper quadrant abdominal tenderness (principal); K76.0 Fatty (change of) liver, not elsewhere classified
CPT/HCPCS: 76700

== ENCOUNTER → 2022-10-05 | Outpatient (CLI) | payer MEDICARE ==
--- NOTE | 2022-10-06 11:31 | MM ---
Reason for Exam: Screening (asymptomatic). Last screening mammogram was performed 12 month(s) ago. Patient History: Menarche at age 12. First Full-Term at age 18. Left ovary removed at age 62. Right ovary removed at age 62. Hysterectomy at age 62. Postmenopausal. Patient used Estrogen for 4 years. 07/26/1998, Benign Stereotactic Core Biopsy on the left side. Paternal aunt had breast cancer, age 70. Risk Values: Jessica 5 year model risk: 1.6%. NCI Lifetime model risk: 2.7%. Prior Study Comparison: 06/17/2019 Bilateral Screening Mammogram, [facility]. 08/07/2020 Bilateral Screening Mammogram, [facility]. 10/02/2021 Bilateral Screening Mammogram, [facility]. Tissue Density: There are scattered fibroglandular densities. Findings: Analyzed By CAD. There is no suspicious group of microcalcifications or new suspicious mass in either breast. Scattered benign-appearing calcifications. Left breast biopsy clip. Overall Assessment: Benign, BI-RAD 2 Management: Screening Mammogram of both breasts in 1 year. A clinical breast exam by your physician is recommended on an annual basis and results should be correlated with mammographic findings. [facility] will attempt to contact patient to return for supplemental views and ultrasound if indicated. Electronically signed and approved by: Kel Spencer DO
== END | disposition home or self-care (01) ==
LOC: RADMAMWWP 09:25
PROVIDERS: ATTEND Obstetrics & Gynecology
DX: Z12.31 Encounter for screening mammogram for malignant neoplasm of breast (principal); Z78.0 Asymptomatic menopausal state; Z80.3 Family history of malignant neoplasm of breast
CPT/HCPCS: 77063; 77067

== ENCOUNTER → 2024-03-07 | Outpatient (CLI) | payer MEDICARE ==
--- NOTE | 2024-03-08 11:04 | MM ---
Reason for Exam: Screening (asymptomatic). Last mammogram was performed 1 year(s) and 5 month(s) ago. Patient History: Menarche at age 12. First Full-Term at age 18. Left ovary removed at age 62. Right ovary removed at age 62. Hysterectomy at age 62. Postmenopausal. Patient used Estrogen for 4 years. 07/26/1998, Benign Stereotactic Core Biopsy on the left side. Paternal aunt had breast cancer, age 70. Risk Values: Jessica 5 year model risk: 1.6%. NCI Lifetime model risk: 2.5%. Prior Study Comparison: 08/07/2020 Bilateral Screening Mammogram, [facility]. 10/02/2021 Bilateral Screening Mammogram, [facility]. 10/05/2022 Bilateral MG 3D screening mammo w/cad, [facility]. Tissue Density: The breasts are heterogeneously dense, which may obscure small masses. Findings: Analyzed By CAD. There is no suspicious group of microcalcifications or new suspicious mass in either breast. Overall Assessment: Benign, BI-RAD 2 Management: Screening Mammogram of both breasts in 1 year. . Patient should continue monthly self-breast exams. A clinical breast exam by your physician is recommended on an annual basis. This exam should not preclude additional follow-up of suspicious palpable abnormalities. Note on Jessica scores and lifetime risk: 1. A Jessica score greater than 3% is considered moderate risk. If this is the case, consider specialist referral to assess eligibility for a risk reducing agent. 2. If overall lifetime risk for the development of breast cancer is 20% or higher, the patient may qualify for future screening with alternating mammogram and breast MRI. Electronically signed and approved by: Beto Moe M.D. Radiologis
== END | disposition home or self-care (01) ==
LOC: RADMAMWWP 13:03
PROVIDERS: ATTEND Family Medicine
DX: Z12.31 Encounter for screening mammogram for malignant neoplasm of breast
CPT/HCPCS: 77063; 77067